=== PATIENT | female | born 1970 | race Caucasian/White ===

== ENCOUNTER 2022-11-28 09:51 | Emergency (ER) | payer MEDICAID ==
[~2022-11-28] VITALS: Ht 175.2 cm; Wt 77.1 kg
[2022-11-28 10:43] VITALS: BP 147/82
[2022-11-28] MEDS ORDERED: Motrin,Rufen800 MG PO (10:54)
[2022-11-28] MEDS ORDERED: PENICILLIN-VK500 MG PO (10:54)
== END 2022-11-28 12:09 | disposition home or self-care (01) ==
LOC: ED 09:51
DX: S02.5XXA Fracture of tooth (traumatic), initial encounter for closed fracture (principal); K08.89 Other specified disorders of teeth and supporting structures; Z88.5 Allergy status to narcotic agent; Z98.890 Other specified postprocedural states; X58.XXXA Exposure to other specified factors, initial encounter; Y93.89 Activity, other specified; Y92.89 Other specified places as the place of occurrence of the external cause; Y99.8 Other external cause status

== ENCOUNTER 2024-03-04 11:04 | Emergency (ER) | payer OTHER ==
[~2024-03-04] VITALS: Ht 175.2 cm; Wt 72.6 kg
[~2024-03-04 11:04] MED LIST: Motrin,Rufen800 MG PO; PENICILLIN-VK500 MG PO
[2024-03-04 11:19] VITALS: BP 143/95
[2024-03-04 11:48] LABS: BILIRUBIN Negative (Negative); BLOOD Negative (Negative); CLARITY Clear (Clear); COLOR Yellow (Yellow); GLUCOSE 3+ (Negative); KETONE Trace (Negative); LEUKO ESTERASE Negative (Negative); NITRITE Negative (Negative); PH 5.5 (4.5-8.0); SPECIFIC GRAVITY >= 1.030 (1.001-1.030)
[2024-03-04 11:58] LABS: EPITHELIAL CELLS 16-20; RBC 0-2 rbc/hpf (0-2)
[2024-03-04] MEDS ORDERED: FLUONAZOLE150 M1 PO (12:58)
== END 2024-03-04 13:14 | disposition home or self-care (01) ==
LOC: ED 11:04
PROVIDERS: Physician Assistant Medical
DX: B37.31 Acute candidiasis of vulva and vagina (principal); Z88.5 Allergy status to narcotic agent; Z98.890 Other specified postprocedural states